=== PATIENT | male | born 1955 | race Caucasian/White ===

== ENCOUNTER 2022-11-21 12:32 | Inpatient (IN) | payer OTHER ==
[~2022-11-21] VITALS: Ht 177.8 cm; Wt 108.9 kg
[2022-11-21] VITALS (24 sets, daily range): BP systolic 75–156; BP diastolic 24–124
[2022-11-21] MEDS ORDERED: SUCCINYLCHOLINE CHLORIDE 20 MG/ML 10ML VIAL IV ONE ×2 (12:39→12:45)
[2022-11-21] MEDS ORDERED: ETOMIDATE (2MG/ML) 20ML VIAL IV ONE ×2 (12:39→12:45)
[2022-11-21] MEDS ORDERED: SODIUM CHLORIDE 0.9% 1,000 ML IVB ONE (12:45)
[2022-11-21] MEDS: fentaNYL Drip 2500mCg/250mlNS 250 ML IV SCH ×2 (12:50→23:00)
[2022-11-21] MEDS: PROPOFOL 100 ML IV SCH (12:50)
[2022-11-21] MEDS ORDERED: MIDAZOLAM DRIP 50 mg/50mL 50 ML IV ONE (12:54)
[2022-11-21 13:40] LABS: Eosinophils # (auto) 0 10 ^3/uL (0-0.8); Monocytes # (auto) 1.5 10 ^3/uL (0-1.3)
[2022-11-21 13:43] LABS: Basophils # (auto) 0 10 ^3/uL (0-0.2); Basophils % (auto) 0.2 % (0.0-2.0); Hemoglobin 18.2 g/dL (13.5-17.5); Lymphocytes # (auto) 1.1 10 ^3/uL (0.4-5.4); Lymphocytes % (auto) 5.3 % (10.0-50.0); Mean Corpuscular Hemoglobin 29.7 pg (28.0-32.0); Mean Corpuscular Hgb Conc. 29.6 g/dL (32.0-36.0); Mean Corpuscular Volume 100.1 fL (80.0-100.0); Monocytes % (auto) 7.1 % (0.0-12.0); Neutrophils # (auto) 18.1 10 ^3/uL (1.6-8.6); Neutrophils % (auto) 87.4 % (37.0-80.0); Nucleated Red Blood Cells % 0.1 %; Red Blood Cells 6.12 10^6/uL (4.5-5.90); White Blood Cell 20.7 10^3/uL (4.4-10.8)
[2022-11-21] MEDS ORDERED: DEXTROSE (50%) 50ML SYRG IV PRN ×2 (13:45→23:30)
[2022-11-21] MEDS ORDERED: INSULIN LANTUS (GLARGINE) 1 /0.01ml (100units/ml) SC ONE (13:45)
[2022-11-21] MEDS ORDERED: InsuLIN R (HUMAN) 100 UNITS in SODIUM CHL 0.9% 99 ML IV SCH ×3 (13:45→23:30)
[2022-11-21 13:47] LABS: Albumin 3.7 g/dL (3.4-5.0); Anion Gap 24 (5-15); Calcium 9.5 mg/dL (8.5-10.1); Carbon Dioxide 15 mmol/L (21-32); Chloride 88 mmol/L (98-107); Sodium 127 mmol/L (136-145)
[2022-11-21 13:49] LABS: INR 1.02 (0.9-1.15); Partial Thromboplastin Time 24.8 sec (24.6-33.4)
[2022-11-21 13:52] LABS: Hematocrit 61.3 % (41.0-53.0)
[2022-11-21 13:56] LABS: Alanine Aminotransferase 93 U/L (16-61); Alkaline Phosphatase 169 U/L (45-117); Aspartate Aminotransferase 38 U/L (15-37); BUN/Creatinine Ratio 17.7; Blood Alcohol < 3.0 mg/dL (0-5); GFR African American 15 mL/min; GFR Non-African American 13 mL/min; Total Protein 7.6 g/dL (6.4-8.2)
[2022-11-21 14:19] LABS: Lactic Acid w/Reflex 5.7 mmol/L (0.4-2.0)
[2022-11-21 14:45] LABS: Blood Urea Nitrogen 88 mg/dL (7-18); Glucose 1749 mg/dL (74-106); Magnesium 4.5 mg/dL (1.6-2.6); Potassium 7.8 mmol/L (3.5-5.1)
[2022-11-21] MEDS ORDERED: InsuLIN REG 1unit/0.01ml Soln (100units/ml) IV ONE (15:00)
[2022-11-21] MEDS ORDERED: SODIUM BICARBONATE 8.4 % INJ 50ML VIAL IV ONE ×2 (15:00)
[2022-11-21] MEDS ORDERED: SODIUM CHLORIDE 0.9% 1,000 ML IV ONE ×2 (15:00→18:15)
[2022-11-21 15:03] LABS: Urine Bacteria NONE SEEN /hpf (None Seen); Urine Blood 3+ /uL (Negative); Urine Specific Gravity 1.024 (1.001-1.035); Urine WBC 37 /hpf (0 - 3)
[2022-11-21] MEDS: ACCU-CHEK COMFORT CURVE STRIP VI SCH ×4 (15:08→19:30)
[2022-11-21] MEDS: MIDAZOLAM DRIP 50 mg/50mL 50 ML IV SCH ×4 (15:09→22:30)
[2022-11-21 15:10] LABS: Alcohol, Urine < 3.0 mg/dL (0-10); Amphetamine Screen, Urine NEGATIVE (NEGATIVE); Barbiturate Scree,Urine NEGATIVE (NEGATIVE); Benzodiazephine Screen, Urine NEGATIVE (NEGATIVE); Cannabinoid Screen, Urine NEGATIVE (NEGATIVE); Cocaine Screen, Urine NEGATIVE (NEGATIVE); Opiate Scree,Urine NEGATIVE (NEGATIVE); Phencyclidine Screen, Urine NEGATIVE (NEGATIVE)
[2022-11-21] MEDS ORDERED: cefTRIAXone 1GM/50ML D5W 50 ML IV ONE (15:15)
[2022-11-21] MEDS: NOREPINEPHRINE BITARTRATE 16 MG in SODIUM CHL 0.9% 234 ML IV SCH ×2 (15:45→21:25)
[2022-11-21] MEDS ORDERED: NITROGLYCERIN 0.4 MG SL TAB SL PRN (17:00)
[2022-11-21] MEDS ORDERED: VANCOMYCIN PER PHARMACY 0 MG IV SCH (17:00)
[2022-11-21] MEDS ORDERED: MORPHINE SULFATE INJ 2 MG/ml SYRG IV PRN (17:00)
[2022-11-21] MEDS ORDERED: CEFEPIME 1GM/ 50ML 50 ML IV ONE (17:00)
[2022-11-21] MEDS ORDERED: PANTOPRAZOLE 40 MG/10 ML VIAL INJ IV ONE (17:00)
[2022-11-21 17:26] LABS: Cholesterol 163 mg/dL (< 200); Triglycerides 453 mg/dL (< 150)
[2022-11-21 17:28] LABS: HDL Cholesterol 30 mg/dL (40-59)
[2022-11-21] MEDS ORDERED: VANCOMYCIN 1GM/250ML 250 ML IV ONE (17:30)
[2022-11-21] MEDS ORDERED: SODIUM CHLORIDE 0.9% 1,000 ML IV SCH (18:15)
[2022-11-21] MEDS ORDERED: ENOXAPARIN SOD 30 MG/0.3 ML SYRINGE SC SCH (18:15)
[2022-11-21] MEDS ORDERED: ACCU-CHEK COMFORT CURVE STRIP VI SCH (21:00)
[2022-11-21 22:00] LABS: Protein, Urine 37.8 mg/dL (0.0-11.9)
[2022-11-21 22:08] LABS: Calcium 8.8 mg/dL (8.5-10.1); Potassium 4.7 mmol/L (3.5-5.1)
[2022-11-21] MEDS: HEPARIN SODIUM (PORCINE) 5000 UNITS/ML 1ML VIAL SC SCH (22:19)
[2022-11-21] MEDS: ACETAMINOPHEN 650 MG RECT SUPP PR PRN (22:27)
[2022-11-21] MEDS ORDERED: ACETAMINOPHEN 650 MG RECT SUPP PR ONE (22:27)
[2022-11-21 22:28] LABS: BUN/Creatinine Ratio 16.2
[2022-11-22] VITALS (99 sets, daily range): BP systolic 69–142; BP diastolic 17–86
[2022-11-22] MEDS: ACCU-CHEK COMFORT CURVE STRIP VI SCH ×17 (00:15→20:00)
[2022-11-22 00:51] LABS: Anion Gap 16 (5-15); BUN/Creatinine Ratio 16.3; Carbon Dioxide 17 mmol/L (21-32); Chloride 111 mmol/L (98-107); GFR African American 13 mL/min; GFR Non-African American 11 mL/min; Potassium 4.9 mmol/L (3.5-5.1); Sodium 144 mmol/L (136-145)
[2022-11-22 01:08] LABS: Blood Urea Nitrogen 90 mg/dL (7-18); Glucose 1021 mg/dL (74-106)
[2022-11-22] MEDS ORDERED: DEXTROSE (50%) 50ML SYRG IV PRN ×2 (01:15→12:45)
[2022-11-22] MEDS ORDERED: InsuLIN R (HUMAN) 100 UNITS in SODIUM CHL 0.9% 99 ML IV SCH (01:15)
[2022-11-22] MEDS ORDERED: SODIUM BICARBONATE 8.4 % INJ 50ML VIAL IV ONE ×2 (01:30→01:32)
[2022-11-22] MEDS: MIDAZOLAM DRIP 50 mg/50mL 50 ML IV SCH ×6 (01:46→21:10)
[2022-11-22] MEDS ORDERED: PHENYLEPHRINE IV 250 ML IV ONE (03:12)
[2022-11-22] MEDS ORDERED: NOREPINEPHRINE 8 MG/250ML KIT 250 ML IV SCH (03:15)
[2022-11-22] MEDS ORDERED: PHENYLEPHRINE IV 250 ML IV SCH (04:00)
[2022-11-22] MEDS ORDERED: VASOPRESSIN 20 UNIT/ML ONE (04:16)
[2022-11-22] MEDS: VASOPRESSIN 20 UNITS in SODIUM CHL 0.9% 99 ML IV SCH ×4 (04:23→20:30)
[2022-11-22 04:32] LABS: Hematocrit 52.6 % (41.0-53.0); Mean Corpuscular Hemoglobin 28.9 pg (28.0-32.0); Mean Corpuscular Hgb Conc. 32.2 g/dL (32.0-36.0); Mean Corpuscular Volume 89.5 fL (80.0-100.0); Red Blood Cells 5.87 10^6/uL (4.5-5.90); Red Cell Distribution Width 13.6 % (11.8-14.3); White Blood Cell 27.9 10^3/uL (4.4-10.8)
[2022-11-22 04:37] LABS: Basophils % (manual) 0 (0.0-2.0); Blast Cells 0; Eosinophils % (manual) 0 (0-7); Metamyelocytes % 0; Myelocytes % 0; Promyelocytes % 0; Reactive Lymphocytes 0
[2022-11-22 04:40] LABS: Calcium 9.4 mg/dL (8.5-10.1); Potassium 4.6 mmol/L (3.5-5.1)
[2022-11-22 04:43] LABS: Bilirubin, Total 0.4 mg/dL (0.2-1.0); Phosphorus 2.6 mg/dL (2.5-4.90); Total Protein 7.2 g/dL (6.4-8.2)
[2022-11-22 04:51] LABS: BUN/Creatinine Ratio 16.1
[2022-11-22] MEDS: HEPARIN SODIUM (PORCINE) 5000 UNITS/ML 1ML VIAL SC SCH ×3 (06:00→22:02)
[2022-11-22 06:44] LABS: BUN/Creatinine Ratio 14.9; Calcium 9.3 mg/dL (8.5-10.1); Potassium 4.5 mmol/L (3.5-5.1)
[2022-11-22 08:35] LABS: Band Neutrophils % (manual) 21; Lymphocytes % (manual) 8 (10.0-50.0); Monocytes % (manual) 7 (0-12)
[2022-11-22] MEDS: PANTOPRAZOLE 40 MG/10 ML VIAL INJ IV SCH (09:26)
[2022-11-22] MEDS ORDERED: CEFEPIME 1GM/ 50ML 50 ML IV SCH (10:00)
[2022-11-22] MEDS ORDERED: ENOXAPARIN SOD 30 MG/0.3 ML SYRINGE SC SCH (10:00)
[2022-11-22] MEDS ORDERED: INSULIN LANTUS (GLARGINE) 1 /0.01ml (100units/ml) SC SCH ×3 (10:00)
[2022-11-22] MEDS: PHENYLEPHRINE INJ 80 MG in SODIUM CHL 0.9% 242 ML IV SCH (10:31)
[2022-11-22] MEDS ORDERED: DOPamine 1600MCG/ML D5W 250 ML IV SCH ×3 (12:15→14:30)
[2022-11-22] MEDS ORDERED: SOD CHL 0.45% 1,000 ML IV SCH (12:15)
[2022-11-22 12:21] LABS: BUN/Creatinine Ratio 15.4; Calcium 8.2 mg/dL (8.5-10.1); Potassium 4.2 mmol/L (3.5-5.1)
[2022-11-22] MEDS: PROPOFOL 100 ML IV SCH (12:50)
[2022-11-22] MEDS: BUMETANIDE INJECTION 12.5 MG in GIVE UN-DILUTED 0 ML IV SCH (15:07)
[2022-11-22] MEDS: LINEZOLID 600MG/300ML 300 ML IV SCH (15:09)
[2022-11-22] MEDS: InsuLIN REG 1unit/0.01ml Soln (100units/ml) SC SCH ×2 (15:27→20:00)
[2022-11-22] MEDS: NOREPINEPHRINE BITARTRATE 32 MG in SODIUM CHL 0.9% 218 ML IV SCH (15:50)
[2022-11-22] MEDS: FREE WATER GT SCH ×3 (15:50→22:27)
[2022-11-22 16:50] LABS: BUN/Creatinine Ratio 16.4; Calcium 8.2 mg/dL (8.5-10.1); Potassium 4.9 mmol/L (3.5-5.1)
[2022-11-22 18:37] LABS: Calcium 8.3 mg/dL (8.5-10.1); Potassium 5.1 mmol/L (3.5-5.1)
[2022-11-22] MEDS: CEFEPIME 1GM/ 50ML 50 ML IV SCH (22:27)
[2022-11-23] VITALS (105 sets, daily range): BP systolic 88–136; BP diastolic 57–85
[2022-11-23] MEDS: BUMETANIDE INJECTION 12.5 MG in GIVE UN-DILUTED 0 ML IV SCH (01:00)
[2022-11-23] MEDS: MIDAZOLAM DRIP 50 mg/50mL 50 ML IV SCH ×6 (01:00→22:14)
[2022-11-23] MEDS ORDERED: INSULIN LANTUS (GLARGINE) 1 /0.01ml (100units/ml) SC ONE (01:15)
[2022-11-23] MEDS: FREE WATER GT SCH ×6 (01:59→21:53)
[2022-11-23] MEDS: LINEZOLID 600MG/300ML 300 ML IV SCH ×2 (02:00→14:21)
[2022-11-23] MEDS: ACETAMINOPHEN 650 MG RECT SUPP PR PRN ×3 (02:00→18:03)
[2022-11-23] MEDS: fentaNYL Drip 2500mCg/250mlNS 250 ML IV SCH ×2 (02:00→18:00)
[2022-11-23 03:58] LABS: Basophils # (auto) 0.1 10 ^3/uL (0-0.2); Basophils % (auto) 0.5 % (0.0-2.0); Eosinophils # (auto) 0.1 10 ^3/uL (0-0.8); Eosinophils % (auto) 0.4 % (0.0-7.0); Hematocrit 49.8 % (41.0-53.0); Hemoglobin 16.8 g/dL (13.5-17.5); Lymphocytes # (auto) 3.1 10 ^3/uL (0.4-5.4); Lymphocytes % (auto) 14.2 % (10.0-50.0); Mean Corpuscular Hemoglobin 29.6 pg (28.0-32.0); Mean Corpuscular Hgb Conc. 33.8 g/dL (32.0-36.0); Mean Corpuscular Volume 87.4 fL (80.0-100.0); Monocytes # (auto) 1.7 10 ^3/uL (0-1.3); Monocytes % (auto) 7.7 % (0.0-12.0); Neutrophils # (auto) 17.1 10 ^3/uL (1.6-8.6); Neutrophils % (auto) 77.2 % (37.0-80.0); Red Blood Cells 5.69 10^6/uL (4.5-5.90); Red Cell Distribution Width 13.3 % (11.8-14.3); White Blood Cell 22.1 10^3/uL (4.4-10.8)
[2022-11-23] MEDS: ACCU-CHEK COMFORT CURVE STRIP VI SCH ×12 (04:00→21:53)
[2022-11-23 04:14] LABS: Albumin 2.6 g/dL (3.4-5.0); Calcium 8.1 mg/dL (8.5-10.1); Magnesium 2.9 mg/dL (1.6-2.6); Potassium 5.3 mmol/L (3.5-5.1)
[2022-11-23 04:18] LABS: BUN/Creatinine Ratio 16.2; Bilirubin, Total 0.7 mg/dL (0.2-1.0); Phosphorus 5.1 mg/dL (2.5-4.90)
[2022-11-23] MEDS: NOREPINEPHRINE BITARTRATE 32 MG in SODIUM CHL 0.9% 218 ML IV SCH ×2 (06:00→23:30)
[2022-11-23] MEDS: InsuLIN REG 1unit/0.01ml Soln (100units/ml) SC SCH ×10 (06:00→22:35)
[2022-11-23] MEDS: PHENYLEPHRINE INJ 80 MG in SODIUM CHL 0.9% 242 ML IV SCH (06:00)
[2022-11-23] MEDS: HEPARIN SODIUM (PORCINE) 5000 UNITS/ML 1ML VIAL SC SCH ×3 (06:00→21:52)
[2022-11-23] MEDS: PANTOPRAZOLE 40 MG/10 ML VIAL INJ IV SCH (09:40)
[2022-11-23] MEDS: CEFEPIME 1GM/ 50ML 50 ML IV SCH ×2 (09:40→21:53)
[2022-11-23] MEDS ORDERED: INSULIN LANTUS (GLARGINE) 1 /0.01ml (100units/ml) SC SCH (10:00)
[2022-11-23] MEDS: DOPamine 1600MCG/ML D5W 250 ML IV SCH ×2 (10:15→20:38)
[2022-11-23] MEDS: INSULIN LANTUS (GLARGINE) 1 /0.01ml (100units/ml) SC SCH ×2 (10:37→22:01)
[2022-11-23] MEDS: PROPOFOL 100 ML IV SCH (12:50)
[2022-11-23] MEDS: VASOPRESSIN 20 UNITS in SODIUM CHL 0.9% 99 ML IV SCH (21:10)
[2022-11-23] MEDS ORDERED: NOREPINEPHRINE 8 MG/250 ML IV ONE (23:14)
[2022-11-23] MEDS ORDERED: NOREPINEPHRINE 8 MG/250ML KIT 250 ML IV ONE (23:22)
[2022-11-24] VITALS (101 sets, daily range): BP systolic 80–145; BP diastolic 41–91
[2022-11-24] MEDS ORDERED: InsuLIN REG 1unit/0.01ml Soln (100units/ml) SC SCH
[2022-11-24] MEDS: InsuLIN REG 1unit/0.01ml Soln (100units/ml) SC SCH ×12 (02:00→22:10)
[2022-11-24] MEDS: LINEZOLID 600MG/300ML 300 ML IV SCH ×2 (02:20→15:38)
[2022-11-24] MEDS: FREE WATER GT SCH ×6 (02:20→21:30)
[2022-11-24] MEDS: ACCU-CHEK COMFORT CURVE STRIP VI SCH ×12 (02:20→22:11)
[2022-11-24] MEDS: BUMETANIDE INJECTION 12.5 MG in GIVE UN-DILUTED 0 ML IV SCH (02:50)
[2022-11-24] MEDS: ACETAMINOPHEN 650 MG RECT SUPP PR PRN (02:50)
[2022-11-24] MEDS: MIDAZOLAM DRIP 50 mg/50mL 50 ML IV SCH (03:01)
[2022-11-24] MEDS: D5W 5% 1,000 ML IV SCH ×2 (04:00→15:06)
[2022-11-24 04:29] LABS: Basophils # (auto) 0.2 10 ^3/uL (0-0.2); Basophils % (auto) 0.7 % (0.0-2.0); Eosinophils # (auto) 0.2 10 ^3/uL (0-0.8); Hematocrit 48.9 % (41.0-53.0); Hemoglobin 17.3 g/dL (13.5-17.5); Lymphocytes # (auto) 2.8 10 ^3/uL (0.4-5.4); Lymphocytes % (auto) 12.4 % (10.0-50.0); Mean Corpuscular Hemoglobin 30.1 pg (28.0-32.0); Mean Corpuscular Hgb Conc. 35.5 g/dL (32.0-36.0); Mean Corpuscular Volume 84.9 fL (80.0-100.0); Monocytes # (auto) 1.6 10 ^3/uL (0-1.3); Neutrophils # (auto) 17.7 10 ^3/uL (1.6-8.6); Neutrophils % (auto) 78.9 % (37.0-80.0); Nucleated Red Blood Cells % 0.1 %; Red Blood Cells 5.76 10^6/uL (4.5-5.90); Red Cell Distribution Width 13.1 % (11.8-14.3); White Blood Cell 22.4 10^3/uL (4.4-10.8)
[2022-11-24 04:49] LABS: BUN/Creatinine Ratio 18.8; Calcium 8.6 mg/dL (8.5-10.1); Potassium 3.7 mmol/L (3.5-5.1)
[2022-11-24] MEDS: HEPARIN SODIUM (PORCINE) 5000 UNITS/ML 1ML VIAL SC SCH ×3 (06:39→21:31)
[2022-11-24] MEDS: VASOPRESSIN 20 UNITS in SODIUM CHL 0.9% 99 ML IV SCH ×2 (07:49→11:06)
[2022-11-24] MEDS: PHENYLEPHRINE INJ 80 MG in SODIUM CHL 0.9% 242 ML IV SCH (08:45)
[2022-11-24] MEDS: PANTOPRAZOLE 40 MG/10 ML VIAL INJ IV SCH (10:07)
[2022-11-24] MEDS: CEFEPIME 1GM/ 50ML 50 ML IV SCH ×2 (10:12→21:30)
[2022-11-24] MEDS: INSULIN LANTUS (GLARGINE) 1 /0.01ml (100units/ml) SC SCH ×2 (10:32→21:32)
[2022-11-24] MEDS: PROPOFOL 100 ML IV SCH (12:50)
[2022-11-24] MEDS: NOREPINEPHRINE BITARTRATE 32 MG in SODIUM CHL 0.9% 218 ML IV SCH (16:44)
[2022-11-24] MEDS: DOPamine 1600MCG/ML D5W 250 ML IV SCH (23:00)
[2022-11-25] VITALS (99 sets, daily range): BP systolic 87–146; BP diastolic 59–97
[2022-11-25] MEDS: ACCU-CHEK COMFORT CURVE STRIP VI SCH ×9 (00:24→23:28)
[2022-11-25] MEDS: InsuLIN REG 1unit/0.01ml Soln (100units/ml) SC SCH ×9 (00:26→23:19)
[2022-11-25] MEDS ORDERED: BUMETANIDE INJECTION 50 ML ONE (00:42)
[2022-11-25] MEDS: FREE WATER GT SCH ×4 (01:40→18:00)
[2022-11-25] MEDS: BUMETANIDE INJECTION 12.5 MG in GIVE UN-DILUTED 0 ML IV SCH (02:05)
[2022-11-25] MEDS: LINEZOLID 600MG/300ML 300 ML IV SCH ×2 (02:56→16:03)
[2022-11-25 03:36] LABS: Basophils # (auto) 0.1 10 ^3/uL (0-0.2); Basophils % (auto) 0.6 % (0.0-2.0); Eosinophils # (auto) 0.1 10 ^3/uL (0-0.8); Eosinophils % (auto) 0.6 % (0.0-7.0); Hematocrit 48.5 % (41.0-53.0); Hemoglobin 16.5 g/dL (13.5-17.5); Lymphocytes # (auto) 1.9 10 ^3/uL (0.4-5.4); Lymphocytes % (auto) 10.6 % (10.0-50.0); Mean Corpuscular Hemoglobin 29.5 pg (28.0-32.0); Mean Corpuscular Volume 86.6 fL (80.0-100.0); Monocytes # (auto) 1.2 10 ^3/uL (0-1.3); Monocytes % (auto) 6.9 % (0.0-12.0); Neutrophils # (auto) 14.1 10 ^3/uL (1.6-8.6); Neutrophils % (auto) 81.3 % (37.0-80.0); Nucleated Red Blood Cells % 0.2 %; Red Cell Distribution Width 13.1 % (11.8-14.3); White Blood Cell 17.4 10^3/uL (4.4-10.8)
[2022-11-25 05:00] LABS: Albumin 2.4 g/dL (3.4-5.0); Calcium 7.9 mg/dL (8.5-10.1); Potassium 3.5 mmol/L (3.5-5.1)
[2022-11-25 05:04] LABS: BUN/Creatinine Ratio 23.8; Bilirubin, Total 0.8 mg/dL (0.2-1.0); Total Protein 6.5 g/dL (6.4-8.2)
[2022-11-25] MEDS: HEPARIN SODIUM (PORCINE) 5000 UNITS/ML 1ML VIAL SC SCH ×3 (06:00→23:11)
[2022-11-25] MEDS: PHENYLEPHRINE INJ 80 MG in SODIUM CHL 0.9% 242 ML IV SCH (08:43)
[2022-11-25] MEDS: VASOPRESSIN 20 UNITS in SODIUM CHL 0.9% 99 ML IV SCH (10:04)
[2022-11-25] MEDS: PANTOPRAZOLE 40 MG/10 ML VIAL INJ IV SCH (10:04)
[2022-11-25] MEDS: CEFEPIME 1GM/ 50ML 50 ML IV SCH ×2 (10:05→23:30)
[2022-11-25] MEDS: INSULIN LANTUS (GLARGINE) 1 /0.01ml (100units/ml) SC SCH ×2 (10:21→23:27)
[2022-11-25] MEDS: D5W 5% 1,000 ML IV SCH (10:23)
[2022-11-25] MEDS: PROPOFOL 100 ML IV SCH (12:34)
[2022-11-25] MEDS: fentaNYL Drip 2500mCg/250mlNS 250 ML IV SCH (12:34)
[2022-11-25] MEDS: MIDAZOLAM DRIP 50 mg/50mL 50 ML IV SCH (12:35)
[2022-11-25] MEDS: BUMETANIDE 1mg/4ml VIAL (0.25mg/ml) IV SCH (18:00)
[2022-11-26] VITALS (102 sets, daily range): BP systolic 89–144; BP diastolic 52–94
[2022-11-26] MEDS: LINEZOLID 600MG/300ML 300 ML IV SCH ×2 (02:00→14:00)
[2022-11-26] MEDS: ACCU-CHEK COMFORT CURVE STRIP VI SCH ×6 (02:00→22:59)
[2022-11-26] MEDS: InsuLIN REG 1unit/0.01ml Soln (100units/ml) SC SCH ×6 (02:00→22:55)
[2022-11-26] MEDS: HEPARIN SODIUM (PORCINE) 5000 UNITS/ML 1ML VIAL SC SCH ×3 (06:00→22:57)
[2022-11-26] MEDS: FREE WATER GT SCH ×4 (06:00→18:21)
[2022-11-26] MEDS: BUMETANIDE 1mg/4ml VIAL (0.25mg/ml) IV SCH (06:00)
[2022-11-26 07:03] LABS: Hematocrit 47.2 % (41.0-53.0); Hemoglobin 16.5 g/dL (13.5-17.5); Mean Corpuscular Hemoglobin 29.7 pg (28.0-32.0); Mean Corpuscular Hgb Conc. 34.9 g/dL (32.0-36.0); Mean Corpuscular Volume 85.2 fL (80.0-100.0); Red Blood Cells 5.54 10^6/uL (4.5-5.90); Red Cell Distribution Width 12.7 % (11.8-14.3); White Blood Cell 15.7 10^3/uL (4.4-10.8)
[2022-11-26 07:08] LABS: Basophils % (manual) 0 (0.0-2.0); Blast Cells 0; Metamyelocytes % 0; Myelocytes % 0; Promyelocytes % 0; Reactive Lymphocytes 0
[2022-11-26 07:25] LABS: Albumin 2.4 g/dL (3.4-5.0); Calcium 8.6 mg/dL (8.5-10.1); Potassium 3.7 mmol/L (3.5-5.1)
[2022-11-26 07:28] LABS: BUN/Creatinine Ratio 30.6; Bilirubin, Total 0.8 mg/dL (0.2-1.0); Total Protein 6.5 g/dL (6.4-8.2)
[2022-11-26 08:03] LABS: Band Neutrophils % (manual) 7; Eosinophils % (manual) 1 (0-7); Lymphocytes % (manual) 14 (10.0-50.0); Monocytes % (manual) 10 (0-12)
[2022-11-26] MEDS: VASOPRESSIN 20 UNITS in SODIUM CHL 0.9% 99 ML IV SCH ×2 (08:18→19:25)
[2022-11-26] MEDS: PHENYLEPHRINE INJ 80 MG in SODIUM CHL 0.9% 242 ML IV SCH (08:45)
[2022-11-26] MEDS: CEFEPIME 1GM/ 50ML 50 ML IV SCH ×2 (11:38→22:52)
[2022-11-26] MEDS: PANTOPRAZOLE 40 MG/10 ML VIAL INJ IV SCH (11:38)
[2022-11-26] MEDS: INSULIN LANTUS (GLARGINE) 1 /0.01ml (100units/ml) SC SCH ×2 (11:58→22:57)
[2022-11-26] MEDS ORDERED: SODIUM CHLORIDE 0.9% 1,000 ML IV ONE (12:45)
[2022-11-26] MEDS: MIDAZOLAM DRIP 50 mg/50mL 50 ML IV SCH (12:50)
[2022-11-26] MEDS: fentaNYL Drip 2500mCg/250mlNS 250 ML IV SCH (12:50)
[2022-11-26] MEDS: PROPOFOL 100 ML IV SCH ×2 (12:50→20:30)
[2022-11-26] MEDS ORDERED: MICAFUNGIN SODIUM 100 MG in SODIUM CHL 0.9% 100 ML IV ONE (13:15)
[2022-11-27] VITALS (107 sets, daily range): BP systolic 87–123; BP diastolic 56–81
[2022-11-27 01:02] LABS: Calcium 8.8 mg/dL (8.5-10.1); Magnesium 3.1 mg/dL (1.6-2.6); Potassium 3.5 mmol/L (3.5-5.1)
[2022-11-27] MEDS: PROPOFOL 100 ML IV SCH ×6 (02:44→19:33)
[2022-11-27] MEDS: FREE WATER GT SCH ×5 (02:45→23:47)
[2022-11-27] MEDS: LINEZOLID 600MG/300ML 300 ML IV SCH (02:45)
[2022-11-27] MEDS: InsuLIN REG 1unit/0.01ml Soln (100units/ml) SC SCH ×6 (02:46→21:50)
[2022-11-27] MEDS: ACCU-CHEK COMFORT CURVE STRIP VI SCH ×6 (02:46→21:52)
[2022-11-27] MEDS: HEPARIN SODIUM (PORCINE) 5000 UNITS/ML 1ML VIAL SC SCH ×3 (06:53→21:49)
[2022-11-27 07:23] LABS: Basophils # (auto) 0 10 ^3/uL (0-0.2); Basophils % (auto) 0.2 % (0.0-2.0); Eosinophils # (auto) 0.1 10 ^3/uL (0-0.8); Eosinophils % (auto) 0.3 % (0.0-7.0); Hematocrit 45.1 % (41.0-53.0); Hemoglobin 15.6 g/dL (13.5-17.5); Lymphocytes # (auto) 2.4 10 ^3/uL (0.4-5.4); Mean Corpuscular Hemoglobin 29.8 pg (28.0-32.0); Mean Corpuscular Hgb Conc. 34.5 g/dL (32.0-36.0); Mean Corpuscular Volume 86.2 fL (80.0-100.0); Monocytes # (auto) 1.7 10 ^3/uL (0-1.3); Monocytes % (auto) 10.3 % (0.0-12.0); Neutrophils # (auto) 12.1 10 ^3/uL (1.6-8.6); Neutrophils % (auto) 74.2 % (37.0-80.0); Nucleated Red Blood Cells % 0.1 %; Red Blood Cells 5.23 10^6/uL (4.5-5.90); White Blood Cell 16.3 10^3/uL (4.4-10.8)
[2022-11-27 07:44] LABS: Albumin 2.4 g/dL (3.4-5.0); Calcium 8.4 mg/dL (8.5-10.1); Potassium 3.4 mmol/L (3.5-5.1)
[2022-11-27 07:47] LABS: BUN/Creatinine Ratio 36.1; Bilirubin, Total 0.6 mg/dL (0.2-1.0); Total Protein 6.2 g/dL (6.4-8.2)
[2022-11-27] MEDS: INSULIN LANTUS (GLARGINE) 1 /0.01ml (100units/ml) SC SCH ×2 (10:00→21:51)
[2022-11-27] MEDS: SODIUM CHLORIDE 0.9% 1,000 ML IV SCH (10:00)
[2022-11-27] MEDS: PANTOPRAZOLE 40 MG/10 ML VIAL INJ IV SCH (10:20)
[2022-11-27] MEDS: CEFEPIME 1GM/ 50ML 50 ML IV SCH (10:21)
[2022-11-27] MEDS: PHENYLEPHRINE INJ 80 MG in SODIUM CHL 0.9% 242 ML IV SCH (10:22)
[2022-11-27] MEDS: NOREPINEPHRINE BITARTRATE 32 MG in SODIUM CHL 0.9% 218 ML IV SCH ×2 (10:22→13:45)
[2022-11-27] MEDS: MICAFUNGIN SODIUM 100 MG in SODIUM CHL 0.9% 100 ML IV SCH (10:22)
[2022-11-27] MEDS: VASOPRESSIN 20 UNITS in SODIUM CHL 0.9% 99 ML IV SCH ×2 (10:24→17:39)
[2022-11-27] MEDS ORDERED: Nepro With Carb Steady 1 Liter Bottle GT SCH (11:45)
[2022-11-27] MEDS: fentaNYL Drip 2500mCg/250mlNS 250 ML IV SCH (12:50)
[2022-11-27] MEDS: MIDAZOLAM DRIP 50 mg/50mL 50 ML IV SCH (12:50)
[2022-11-27] MEDS ORDERED: EPINEPHrine HCL 1 MG/10 ML SYRG IV ONE (13:02)
[2022-11-27] MEDS ORDERED: ceFAZolin 2 GM in D5W 5% 100 ML IV SCH (22:00)
[2022-11-28] VITALS (87 sets, daily range): BP systolic 89–142; BP diastolic 59–87
[2022-11-28] MEDS: SODIUM CHLORIDE 0.9% 1,000 ML IV SCH (01:00)
[2022-11-28] MEDS: InsuLIN REG 1unit/0.01ml Soln (100units/ml) SC SCH ×5 (02:13→23:46)
[2022-11-28] MEDS: ACCU-CHEK COMFORT CURVE STRIP VI SCH ×5 (02:13→23:44)
[2022-11-28] MEDS: PROPOFOL 100 ML IV SCH ×3 (02:15→19:24)
[2022-11-28 03:56] LABS: Basophils # (auto) 0.1 10 ^3/uL (0-0.2); Basophils % (auto) 0.6 % (0.0-2.0); Eosinophils # (auto) 0.3 10 ^3/uL (0-0.8); Eosinophils % (auto) 1.9 % (0.0-7.0); Hematocrit 44.5 % (41.0-53.0); Lymphocytes % (auto) 13.8 % (10.0-50.0); Mean Corpuscular Hemoglobin 29.4 pg (28.0-32.0); Mean Corpuscular Hgb Conc. 33.8 g/dL (32.0-36.0); Monocytes # (auto) 1.2 10 ^3/uL (0-1.3); Monocytes % (auto) 8.2 % (0.0-12.0); Neutrophils % (auto) 75.5 % (37.0-80.0); Red Blood Cells 5.12 10^6/uL (4.5-5.90); Red Cell Distribution Width 12.8 % (11.8-14.3); White Blood Cell 14.6 10^3/uL (4.4-10.8)
[2022-11-28 04:31] LABS: Albumin 2.3 g/dL (3.4-5.0); BUN/Creatinine Ratio 50.6; Bilirubin, Total 0.4 mg/dL (0.2-1.0); Total Protein 5.9 g/dL (6.4-8.2)
[2022-11-28 04:45] LABS: Potassium 2.8 mmol/L (3.5-5.1)
[2022-11-28] MEDS: VASOPRESSIN 20 UNITS in SODIUM CHL 0.9% 99 ML IV SCH (04:46)
[2022-11-28] MEDS: SOD CHL 0.45% 1,000 ML IV SCH ×2 (05:15→15:15)
[2022-11-28] MEDS: POTASSIUM CHL 20MEQ/100ML 100 ML IV SCH ×4 (05:15→07:15)
[2022-11-28] MEDS: FREE WATER GT SCH ×4 (05:39→23:46)
[2022-11-28] MEDS: HEPARIN SODIUM (PORCINE) 5000 UNITS/ML 1ML VIAL SC SCH ×3 (05:39→21:56)
[2022-11-28] MEDS: PHENYLEPHRINE INJ 80 MG in SODIUM CHL 0.9% 242 ML IV SCH (08:45)
[2022-11-28] MEDS ORDERED: ceFAZolin 2 GM in D5W 5% 100 ML IV SCH (10:00)
[2022-11-28] MEDS: MICAFUNGIN SODIUM 100 MG in SODIUM CHL 0.9% 100 ML IV SCH (10:08)
[2022-11-28] MEDS: PANTOPRAZOLE 40 MG/10 ML VIAL INJ IV SCH (10:08)
[2022-11-28] MEDS: INSULIN LANTUS (GLARGINE) 1 /0.01ml (100units/ml) SC SCH ×2 (10:25→21:58)
[2022-11-28] MEDS: fentaNYL Drip 2500mCg/250mlNS 250 ML IV SCH (12:50)
[2022-11-28] MEDS: MIDAZOLAM DRIP 50 mg/50mL 50 ML IV SCH (12:50)
[2022-11-28] MEDS: NOREPINEPHRINE BITARTRATE 32 MG in SODIUM CHL 0.9% 218 ML IV SCH (13:45)
[2022-11-28] MEDS: ceFAZolin 2 GM in D5W 5% 100 ML IV SCH (21:57)
[2022-11-29] VITALS (82 sets, daily range): BP systolic 92–135; BP diastolic 57–82
[2022-11-29] MEDS: SOD CHL 0.45% 1,000 ML IV SCH (01:15)
[2022-11-29] MEDS: PROPOFOL 100 ML IV SCH ×6 (01:38→23:27)
[2022-11-29 04:35] LABS: BUN/Creatinine Ratio 63.6; Calcium 8.5 mg/dL (8.5-10.1); Potassium 3.2 mmol/L (3.5-5.1)
[2022-11-29 04:37] LABS: Hematocrit 45.1 % (41.0-53.0); Hemoglobin 15.1 g/dL (13.5-17.5); Mean Corpuscular Hgb Conc. 33.4 g/dL (32.0-36.0); Mean Corpuscular Volume 86.9 fL (80.0-100.0); Red Blood Cells 5.19 10^6/uL (4.5-5.90); Red Cell Distribution Width 13.2 % (11.8-14.3); White Blood Cell 14.5 10^3/uL (4.4-10.8)
[2022-11-29 04:38] LABS: Basophils % (manual) 0 (0.0-2.0); Blast Cells 0; Myelocytes % 0; Promyelocytes % 0; Reactive Lymphocytes 0
[2022-11-29] MEDS: ACCU-CHEK COMFORT CURVE STRIP VI SCH ×4 (05:47→23:35)
[2022-11-29] MEDS: FREE WATER GT SCH ×4 (05:47→21:57)
[2022-11-29] MEDS: InsuLIN REG 1unit/0.01ml Soln (100units/ml) SC SCH ×4 (05:49→23:35)
[2022-11-29] MEDS: HEPARIN SODIUM (PORCINE) 5000 UNITS/ML 1ML VIAL SC SCH ×3 (05:49→22:00)
[2022-11-29 08:43] LABS: Band Neutrophils % (manual) 13; Eosinophils % (manual) 1 (0-7); Lymphocytes % (manual) 12 (10.0-50.0); Metamyelocytes % 2; Monocytes % (manual) 8 (0-12)
[2022-11-29] MEDS: INSULIN LANTUS (GLARGINE) 1 /0.01ml (100units/ml) SC SCH ×2 (10:00→22:01)
[2022-11-29] MEDS: D5W 5% 1,000 ML IV SCH ×2 (10:30→21:19)
[2022-11-29] MEDS: PANTOPRAZOLE 40 MG/10 ML VIAL INJ IV SCH (10:35)
[2022-11-29] MEDS: ceFAZolin 2 GM in D5W 5% 100 ML IV SCH ×2 (10:35→21:58)
[2022-11-29] MEDS: MIDAZOLAM DRIP 50 mg/50mL 50 ML IV SCH (12:50)
[2022-11-29] MEDS: fentaNYL Drip 2500mCg/250mlNS 250 ML IV SCH (12:50)
[2022-11-29] MEDS: NOREPINEPHRINE BITARTRATE 32 MG in SODIUM CHL 0.9% 218 ML IV SCH (13:45)
[2022-11-30] VITALS (102 sets, daily range): BP systolic 105–151; BP diastolic 56–110
[2022-11-30] MEDS: FREE WATER GT SCH ×6 (02:59→21:33)
[2022-11-30 04:14] LABS: Hematocrit 39.4 % (41.0-53.0); Hemoglobin 13.1 g/dL (13.5-17.5); Mean Corpuscular Hemoglobin 29.4 pg (28.0-32.0); Mean Corpuscular Hgb Conc. 33.2 g/dL (32.0-36.0); Mean Corpuscular Volume 88.4 fL (80.0-100.0); Red Blood Cells 4.46 10^6/uL (4.5-5.90); Red Cell Distribution Width 13.4 % (11.8-14.3)
[2022-11-30] MEDS: PROPOFOL 100 ML IV SCH ×3 (04:16→19:22)
[2022-11-30 04:19] LABS: Anion Gap 8 (5-15); Carbon Dioxide 25 mmol/L (21-32); Chloride 108 mmol/L (98-107); Sodium 141 mmol/L (136-145)
[2022-11-30 04:22] LABS: GFR African American 33 mL/min; GFR Non-African American 27 mL/min
[2022-11-30 04:24] LABS: Basophils % (manual) 0 (0.0-2.0); Blast Cells 0; Myelocytes % 0; Promyelocytes % 0; Reactive Lymphocytes 0
[2022-11-30 04:28] LABS: Glucose 461 mg/dL (74-106); Potassium 2.7 mmol/L (3.5-5.1)
[2022-11-30 04:29] LABS: Blood Urea Nitrogen 130 mg/dL (7-18)
[2022-11-30 04:56] LABS: Band Neutrophils % (manual) 4; Eosinophils % (manual) 1 (0-7); Lymphocytes % (manual) 21 (10.0-50.0); Metamyelocytes % 3; Monocytes % (manual) 11 (0-12)
[2022-11-30 05:28] LABS: Calcium 8.8 mg/dL (8.5-10.1); Potassium 3.1 mmol/L (3.5-5.1)
[2022-11-30] MEDS: HEPARIN SODIUM (PORCINE) 5000 UNITS/ML 1ML VIAL SC SCH ×3 (05:30→21:31)
[2022-11-30] MEDS: ACCU-CHEK COMFORT CURVE STRIP VI SCH ×4 (05:31→23:44)
[2022-11-30] MEDS: InsuLIN REG 1unit/0.01ml Soln (100units/ml) SC SCH ×4 (05:31→23:44)
[2022-11-30] MEDS ORDERED: POTASSIUM CHLORIDE 40 MEQ, LIDOCAINE 1% (LOCAL ANESTH.) 4 ML in SODIUM CHL 0.9% 250 ML IV ONE (08:00)
[2022-11-30] MEDS: D5W 5% 1,000 ML IV SCH ×2 (09:16→16:30)
[2022-11-30] MEDS: PANTOPRAZOLE 40 MG/10 ML VIAL INJ IV SCH (09:46)
[2022-11-30] MEDS: ceFAZolin 2 GM in D5W 5% 100 ML IV SCH ×2 (09:48→21:33)
[2022-11-30] MEDS: INSULIN LANTUS (GLARGINE) 1 /0.01ml (100units/ml) SC SCH ×2 (09:49→21:33)
[2022-11-30] MEDS: fentaNYL Drip 2500mCg/250mlNS 250 ML IV SCH (11:26)
[2022-11-30] MEDS: MIDAZOLAM DRIP 50 mg/50mL 50 ML IV SCH (11:26)
[2022-11-30] MEDS: NOREPINEPHRINE BITARTRATE 32 MG in SODIUM CHL 0.9% 218 ML IV SCH (11:26)
[2022-11-30] MEDS ORDERED: FREE WATER GT SCH (13:00)
[2022-11-30 18:33] LABS: BUN/Creatinine Ratio 53.7; Calcium 8.7 mg/dL (8.5-10.1); Potassium 3.1 mmol/L (3.5-5.1)
[2022-11-30] MEDS: POTASSIUM CHL 20MEQ/100ML 100 ML IV SCH (22:29)
[2022-12-01] VITALS (84 sets, daily range): BP systolic 83–158; BP diastolic 34–102
[2022-12-01] MEDS: POTASSIUM CHL 20MEQ/100ML 100 ML IV SCH ×2 (00:37→02:30)
[2022-12-01] MEDS: FREE WATER GT SCH ×6 (02:29→22:15)
[2022-12-01] MEDS: D5W 5% 1,000 ML IV SCH ×3 (02:35→22:33)
[2022-12-01 04:38] LABS: Chloride 119 mmol/L (98-107); Potassium 5.1 mmol/L (3.5-5.1); Sodium 149 mmol/L (136-145)
[2022-12-01 04:44] LABS: Anion Gap 8 (5-15); BUN/Creatinine Ratio 45.9; Calcium 8.4 mg/dL (8.5-10.1); Carbon Dioxide 22 mmol/L (21-32); GFR African American 37 mL/min; GFR Non-African American 31 mL/min; Glucose 162 mg/dL (74-106)
[2022-12-01 04:46] LABS: Blood Urea Nitrogen 105 mg/dL (7-18)
[2022-12-01 04:47] LABS: Alanine Aminotransferase 27 U/L (16-61); Alkaline Phosphatase 134 U/L (45-117); Aspartate Aminotransferase 93 U/L (15-37); Bilirubin, Total 0.8 mg/dL (0.2-1.0); Total Protein 6.1 g/dL (6.4-8.2)
[2022-12-01] MEDS: HEPARIN SODIUM (PORCINE) 5000 UNITS/ML 1ML VIAL SC SCH ×3 (06:01→22:16)
[2022-12-01] MEDS: ACCU-CHEK COMFORT CURVE STRIP VI SCH ×3 (06:03→17:40)
[2022-12-01] MEDS: InsuLIN REG 1unit/0.01ml Soln (100units/ml) SC SCH ×3 (06:03→17:41)
[2022-12-01] MEDS: PANTOPRAZOLE 40 MG/10 ML VIAL INJ IV SCH (09:42)
[2022-12-01] MEDS: ceFAZolin 2 GM in D5W 5% 100 ML IV SCH ×2 (09:43→22:16)
[2022-12-01] MEDS: INSULIN LANTUS (GLARGINE) 1 /0.01ml (100units/ml) SC SCH ×2 (09:46→22:32)
[2022-12-01] MEDS: fentaNYL Drip 2500mCg/250mlNS 250 ML IV SCH (12:50)
[2022-12-01] MEDS: MIDAZOLAM DRIP 50 mg/50mL 50 ML IV SCH (12:50)
[2022-12-01] MEDS: NOREPINEPHRINE BITARTRATE 32 MG in SODIUM CHL 0.9% 218 ML IV SCH (13:45)
[2022-12-01 18:47] LABS: BUN/Creatinine Ratio 43.6; Calcium 8.9 mg/dL (8.5-10.1); Potassium 3.3 mmol/L (3.5-5.1)
[2022-12-02] VITALS (73 sets, daily range): BP systolic 86–143; BP diastolic 41–91
[2022-12-02] MEDS: ACCU-CHEK COMFORT CURVE STRIP VI SCH ×4 (00:20→17:43)
[2022-12-02] MEDS: InsuLIN REG 1unit/0.01ml Soln (100units/ml) SC SCH ×4 (00:21→17:43)
[2022-12-02] MEDS: FREE WATER GT SCH ×6 (02:44→21:50)
[2022-12-02 04:43] LABS: BUN/Creatinine Ratio 45.1; Calcium 8.3 mg/dL (8.5-10.1); Potassium 3.3 mmol/L (3.5-5.1)
[2022-12-02] MEDS: HEPARIN SODIUM (PORCINE) 5000 UNITS/ML 1ML VIAL SC SCH ×3 (05:51→22:02)
[2022-12-02 08:43] LABS: Hematocrit 38.5 % (41.0-53.0); Hemoglobin 12.8 g/dL (13.5-17.5); Mean Corpuscular Hemoglobin 28.9 pg (28.0-32.0); Mean Corpuscular Hgb Conc. 33.2 g/dL (32.0-36.0); Mean Corpuscular Volume 87.1 fL (80.0-100.0); Red Blood Cells 4.42 10^6/uL (4.5-5.90); White Blood Cell 14.6 10^3/uL (4.4-10.8)
[2022-12-02 08:49] LABS: Basophils % (manual) 0 (0.0-2.0); Blast Cells 0; Metamyelocytes % 0; Myelocytes % 0; Promyelocytes % 0; Reactive Lymphocytes 0
[2022-12-02] MEDS: PANTOPRAZOLE 40 MG/10 ML VIAL INJ IV SCH (09:47)
[2022-12-02] MEDS: ceFAZolin 2 GM in D5W 5% 100 ML IV SCH ×2 (09:47→22:03)
[2022-12-02] MEDS: INSULIN LANTUS (GLARGINE) 1 /0.01ml (100units/ml) SC SCH ×2 (10:11→22:00)
[2022-12-02 11:38] LABS: Band Neutrophils % (manual) 72; Eosinophils % (manual) 3 (0-7); Lymphocytes % (manual) 18 (10.0-50.0); Monocytes % (manual) 7 (0-12)
[2022-12-02] MEDS: PROPOFOL 100 ML IV SCH (12:50)
[2022-12-02] MEDS: MIDAZOLAM DRIP 50 mg/50mL 50 ML IV SCH (12:50)
[2022-12-02] MEDS: fentaNYL Drip 2500mCg/250mlNS 250 ML IV SCH (12:50)
[2022-12-02] MEDS ORDERED: POTASSIUM CHL 20MEQ/100ML 100 ML IV ONE ×2 (13:15→17:00)
[2022-12-02] MEDS: NOREPINEPHRINE BITARTRATE 32 MG in SODIUM CHL 0.9% 218 ML IV SCH (13:45)
[2022-12-02] MEDS: D5W 5% 1,000 ML IV SCH (13:55)
[2022-12-03] VITALS (32 sets, daily range): BP systolic 116–165; BP diastolic 71–101
[2022-12-03] MEDS: FREE WATER GT SCH ×3 (00:35→10:00)
[2022-12-03] MEDS: D5W 5% 1,000 ML IV SCH ×2 (02:25→15:55)
[2022-12-03 04:32] LABS: Basophils # (auto) 0 10 ^3/uL (0-0.2); Basophils % (auto) 0.2 % (0.0-2.0); Eosinophils # (auto) 0.2 10 ^3/uL (0-0.8); Eosinophils % (auto) 2.1 % (0.0-7.0); Hematocrit 39.9 % (41.0-53.0); Hemoglobin 13.3 g/dL (13.5-17.5); Lymphocytes # (auto) 2.3 10 ^3/uL (0.4-5.4); Lymphocytes % (auto) 20.6 % (10.0-50.0); Mean Corpuscular Hemoglobin 29.3 pg (28.0-32.0); Mean Corpuscular Hgb Conc. 33.2 g/dL (32.0-36.0); Mean Corpuscular Volume 88.2 fL (80.0-100.0); Monocytes # (auto) 0.8 10 ^3/uL (0-1.3); Neutrophils # (auto) 7.8 10 ^3/uL (1.6-8.6); Neutrophils % (auto) 70.1 % (37.0-80.0); Nucleated Red Blood Cells % 0.1 %; Red Blood Cells 4.52 10^6/uL (4.5-5.90); Red Cell Distribution Width 12.9 % (11.8-14.3); White Blood Cell 11.1 10^3/uL (4.4-10.8)
[2022-12-03 04:42] LABS: BUN/Creatinine Ratio 44.4; Calcium 8.9 mg/dL (8.5-10.1)
[2022-12-03] MEDS: ACCU-CHEK COMFORT CURVE STRIP VI SCH ×4 (06:00→18:21)
[2022-12-03] MEDS: InsuLIN REG 1unit/0.01ml Soln (100units/ml) SC SCH ×4 (06:00→18:22)
[2022-12-03] MEDS: ceFAZolin 2 GM in D5W 5% 100 ML IV SCH ×3 (06:00→22:00)
[2022-12-03] MEDS: HEPARIN SODIUM (PORCINE) 5000 UNITS/ML 1ML VIAL SC SCH ×3 (06:33→22:00)
[2022-12-03] MEDS: PANTOPRAZOLE 40 MG/10 ML VIAL INJ IV SCH (10:12)
[2022-12-03] MEDS: INSULIN LANTUS (GLARGINE) 1 /0.01ml (100units/ml) SC SCH ×2 (10:41→22:00)
[2022-12-03] MEDS: POTASSIUM CHL 20MEQ/100ML 100 ML IV SCH ×3 (11:41→17:57)
[2022-12-04] MEDS: ACCU-CHEK COMFORT CURVE STRIP VI SCH ×5 (00:06→22:18)
[2022-12-04] MEDS: InsuLIN REG 1unit/0.01ml Soln (100units/ml) SC SCH ×5 (00:15→22:00)
[2022-12-04 05:00] VITALS: BP 135/83
[2022-12-04] MEDS: D5W 5% 1,000 ML IV SCH ×2 (05:43→18:27)
[2022-12-04] MEDS: HEPARIN SODIUM (PORCINE) 5000 UNITS/ML 1ML VIAL SC SCH ×3 (06:00→22:00)
[2022-12-04 06:33] LABS: Basophils # (auto) 0.1 10 ^3/uL (0-0.2); Basophils % (auto) 0.5 % (0.0-2.0); Eosinophils # (auto) 0.2 10 ^3/uL (0-0.8); Eosinophils % (auto) 2.2 % (0.0-7.0); Hematocrit 39.9 % (41.0-53.0); Hemoglobin 13.9 g/dL (13.5-17.5); Lymphocytes % (auto) 21.3 % (10.0-50.0); Mean Corpuscular Hgb Conc. 34.9 g/dL (32.0-36.0); Mean Corpuscular Volume 85.8 fL (80.0-100.0); Monocytes # (auto) 0.7 10 ^3/uL (0-1.3); Monocytes % (auto) 7.7 % (0.0-12.0); Neutrophils # (auto) 6.5 10 ^3/uL (1.6-8.6); Neutrophils % (auto) 68.3 % (37.0-80.0); Nucleated Red Blood Cells % 0.2 %; Red Blood Cells 4.65 10^6/uL (4.5-5.90); Red Cell Distribution Width 12.8 % (11.8-14.3); White Blood Cell 9.5 10^3/uL (4.4-10.8)
[2022-12-04] MEDS: ceFAZolin 2 GM in D5W 5% 100 ML IV SCH ×3 (06:34→21:55)
[2022-12-04 06:43] LABS: Albumin 2.1 g/dL (3.4-5.0); BUN/Creatinine Ratio 37.5; Calcium 8.9 mg/dL (8.5-10.1); Potassium 3.7 mmol/L (3.5-5.1)
[2022-12-04 06:46] LABS: Bilirubin, Total 0.4 mg/dL (0.2-1.0); Total Protein 6.2 g/dL (6.4-8.2)
[2022-12-04 09:03] VITALS: BP 136/80
[2022-12-04] MEDS: PANTOPRAZOLE 40 MG/10 ML VIAL INJ IV SCH (10:12)
[2022-12-04] MEDS: INSULIN LANTUS (GLARGINE) 1 /0.01ml (100units/ml) SC SCH ×2 (10:19→22:00)
[2022-12-04 12:53] VITALS: BP 132/82
[2022-12-04 17:05] VITALS: BP 132/88
[2022-12-04 22:04] VITALS: BP 138/84
[2022-12-05] VITALS (7 sets, daily range): BP systolic 103–142; BP diastolic 71–95
[2022-12-05] MEDS: D5W 5% 1,000 ML IV SCH ×2 (04:26→21:15)
[2022-12-05] MEDS: InsuLIN REG 1unit/0.01ml Soln (100units/ml) SC SCH ×3 (06:00→18:00)
[2022-12-05] MEDS: ceFAZolin 2 GM in D5W 5% 100 ML IV SCH ×3 (06:04→22:28)
[2022-12-05] MEDS: HEPARIN SODIUM (PORCINE) 5000 UNITS/ML 1ML VIAL SC SCH ×3 (06:05→22:29)
[2022-12-05] MEDS: ACCU-CHEK COMFORT CURVE STRIP VI SCH ×3 (06:06→18:16)
[2022-12-05] MEDS: PANTOPRAZOLE 40 MG/10 ML VIAL INJ IV SCH (08:48)
[2022-12-05] MEDS: INSULIN LANTUS (GLARGINE) 1 /0.01ml (100units/ml) SC SCH ×2 (08:51→22:27)
[2022-12-05] MEDS ORDERED: HALOPERIDOL LACTATE 5 MG/ML INJ VIAL IM ONE (12:00)
[2022-12-05 14:25] LABS: Basophils # (auto) 0.1 10 ^3/uL (0-0.2); Basophils % (auto) 0.8 % (0.0-2.0); Eosinophils # (auto) 0.2 10 ^3/uL (0-0.8); Eosinophils % (auto) 1.8 % (0.0-7.0); Hematocrit 43.6 % (41.0-53.0); Hemoglobin 14.4 g/dL (13.5-17.5); Lymphocytes # (auto) 1.7 10 ^3/uL (0.4-5.4); Lymphocytes % (auto) 18.2 % (10.0-50.0); Mean Corpuscular Hgb Conc. 33.1 g/dL (32.0-36.0); Mean Corpuscular Volume 87.7 fL (80.0-100.0); Monocytes # (auto) 0.9 10 ^3/uL (0-1.3); Monocytes % (auto) 9.6 % (0.0-12.0); Neutrophils # (auto) 6.4 10 ^3/uL (1.6-8.6); Neutrophils % (auto) 69.6 % (37.0-80.0); Nucleated Red Blood Cells % 0.1 %; Red Blood Cells 4.97 10^6/uL (4.5-5.90); Red Cell Distribution Width 12.8 % (11.8-14.3); White Blood Cell 9.2 10^3/uL (4.4-10.8)
[2022-12-05 14:30] LABS: Calcium 9.1 mg/dL (8.5-10.1); Potassium 3.7 mmol/L (3.5-5.1)
[2022-12-05 14:32] LABS: BUN/Creatinine Ratio 29.5
[2022-12-06 05:00] VITALS: BP 133/89
[2022-12-06] MEDS: InsuLIN REG 1unit/0.01ml Soln (100units/ml) SC SCH ×4 (06:00→17:59)
[2022-12-06 06:21] LABS: Basophils # (auto) 0.1 10 ^3/uL (0-0.2); Basophils % (auto) 0.8 % (0.0-2.0); Eosinophils # (auto) 0.1 10 ^3/uL (0-0.8); Eosinophils % (auto) 1.1 % (0.0-7.0); Hematocrit 42.8 % (41.0-53.0); Hemoglobin 14.9 g/dL (13.5-17.5); Lymphocytes # (auto) 2.5 10 ^3/uL (0.4-5.4); Lymphocytes % (auto) 24.2 % (10.0-50.0); Mean Corpuscular Hemoglobin 29.8 pg (28.0-32.0); Mean Corpuscular Hgb Conc. 34.8 g/dL (32.0-36.0); Mean Corpuscular Volume 85.6 fL (80.0-100.0); Neutrophils # (auto) 6.7 10 ^3/uL (1.6-8.6); Neutrophils % (auto) 63.9 % (37.0-80.0); Nucleated Red Blood Cells % 0.2 %; Red Cell Distribution Width 13.1 % (11.8-14.3); White Blood Cell 10.4 10^3/uL (4.4-10.8)
[2022-12-06] MEDS: ACCU-CHEK COMFORT CURVE STRIP VI SCH ×5 (06:46→23:20)
[2022-12-06] MEDS: ceFAZolin 2 GM in D5W 5% 100 ML IV SCH ×3 (06:50→23:20)
[2022-12-06] MEDS: HEPARIN SODIUM (PORCINE) 5000 UNITS/ML 1ML VIAL SC SCH ×3 (06:51→23:23)
[2022-12-06 07:08] LABS: Potassium 3.6 mmol/L (3.5-5.1)
[2022-12-06 07:15] LABS: Albumin 2.4 g/dL (3.4-5.0); BUN/Creatinine Ratio 28.1; Bilirubin, Total 0.5 mg/dL (0.2-1.0); Calcium 9.4 mg/dL (8.5-10.1); Total Protein 7.1 g/dL (6.4-8.2)
[2022-12-06 08:36] VITALS: BP 125/65
[2022-12-06] MEDS: INSULIN LANTUS (GLARGINE) 1 /0.01ml (100units/ml) SC SCH ×2 (10:00→22:00)
[2022-12-06] MEDS: PANTOPRAZOLE 40 MG/10 ML VIAL INJ IV SCH (10:11)
[2022-12-06] MEDS: D5W 5% 1,000 ML IV SCH ×2 (11:01→13:01)
[2022-12-06] MEDS: HALOPERIDOL LACTATE 5 MG/ML INJ VIAL IM PRN (11:08)
[2022-12-06 12:49] VITALS: BP 143/93
[2022-12-06] MEDS: Glucerna Carbsteady SHAKE Vanilla 8oz PO SCH ×2 (14:13→18:00)
[2022-12-06] MEDS ORDERED: LORazepam 2MG/ML-1ML VIAL IV PRN (16:45)
[2022-12-06 16:56] VITALS: BP 144/84
[2022-12-06 22:00] VITALS: BP 122/84
[2022-12-07] MEDS: InsuLIN REG 1unit/0.01ml Soln (100units/ml) SC SCH ×4 (01:06→16:26)
[2022-12-07 05:00] VITALS: BP 134/82
[2022-12-07] MEDS: ACCU-CHEK COMFORT CURVE STRIP VI SCH ×3 (06:36→16:27)
[2022-12-07] MEDS: ceFAZolin 2 GM in D5W 5% 100 ML IV SCH ×3 (06:45→22:00)
[2022-12-07] MEDS: HEPARIN SODIUM (PORCINE) 5000 UNITS/ML 1ML VIAL SC SCH ×2 (06:46→16:25)
[2022-12-07] MEDS: PANTOPRAZOLE 40 MG/10 ML VIAL INJ IV SCH (09:43)
[2022-12-07] MEDS: INSULIN LANTUS (GLARGINE) 1 /0.01ml (100units/ml) SC SCH ×2 (09:43→22:00)
[2022-12-07] MEDS: Glucerna Carbsteady SHAKE Vanilla 8oz PO SCH ×3 (09:44→16:26)
[2022-12-07] MEDS ORDERED: MUPIROCIN 2% OINT 15gm or 22gm TOP ONE (11:30)
[2022-12-07] MEDS: MUPIROCIN 2% OINT 15gm or 22gm TOP SCH (12:33)
[2022-12-07] MEDS: D5W 5% 1,000 ML IV SCH (14:31)
[2022-12-07 15:49] LABS: BUN/Creatinine Ratio 23.1; Calcium 8.7 mg/dL (8.5-10.1)
[2022-12-07] MEDS ORDERED: ceFAZolin 1GM/50ML 100 ML IV ONE (20:04)
[2022-12-07 21:31] VITALS: BP 119/72
[2022-12-07] MEDS: HALOPERIDOL LACTATE 5 MG/ML INJ VIAL IM PRN (21:55)
[2022-12-08] MEDS: ACCU-CHEK COMFORT CURVE STRIP VI SCH ×5 (00:34→23:25)
[2022-12-08] MEDS: HEPARIN SODIUM (PORCINE) 5000 UNITS/ML 1ML VIAL SC SCH ×4 (00:47→22:00)
[2022-12-08] MEDS: MUPIROCIN 2% OINT 15gm or 22gm TOP SCH ×3 (00:48→22:20)
[2022-12-08] MEDS: InsuLIN REG 1unit/0.01ml Soln (100units/ml) SC SCH ×5 (00:48→23:25)
[2022-12-08 04:49] VITALS: BP 120/70
[2022-12-08] MEDS: D5W 5% 1,000 ML IV SCH ×2 (04:59→17:11)
[2022-12-08] MEDS: ceFAZolin 2 GM in D5W 5% 100 ML IV SCH ×3 (05:24→22:00)
[2022-12-08 07:14] LABS: Potassium 3.8 mmol/L (3.5-5.1)
[2022-12-08 07:27] LABS: BUN/Creatinine Ratio 23.3; Calcium 8.5 mg/dL (8.5-10.1)
[2022-12-08] MEDS: Glucerna Carbsteady SHAKE Vanilla 8oz PO SCH ×3 (08:49→17:12)
[2022-12-08] MEDS: PANTOPRAZOLE 40 MG/10 ML VIAL INJ IV SCH (08:49)
[2022-12-08] MEDS: INSULIN LANTUS (GLARGINE) 1 /0.01ml (100units/ml) SC SCH ×2 (08:50→22:00)
[2022-12-08 08:53] VITALS: BP 126/74
[2022-12-08 13:00] VITALS: BP 130/80
[2022-12-08 17:00] VITALS: BP 128/78
[2022-12-08 20:56] VITALS: BP 116/68
[2022-12-08] MEDS: HALOPERIDOL LACTATE 5 MG/ML INJ VIAL IM PRN (22:20)
[2022-12-09 05:00] VITALS: BP 108/76
[2022-12-09] MEDS: D5W 5% 1,000 ML IV SCH (05:05)
[2022-12-09] MEDS: ACCU-CHEK COMFORT CURVE STRIP VI SCH ×4 (05:15→22:58)
[2022-12-09] MEDS: InsuLIN REG 1unit/0.01ml Soln (100units/ml) SC SCH ×4 (05:15→22:59)
[2022-12-09] MEDS: HEPARIN SODIUM (PORCINE) 5000 UNITS/ML 1ML VIAL SC SCH ×3 (05:16→22:57)
[2022-12-09] MEDS: ceFAZolin 2 GM in D5W 5% 100 ML IV SCH (05:55)
[2022-12-09] MEDS: Glucerna Carbsteady SHAKE Vanilla 8oz PO SCH ×3 (08:23→17:44)
[2022-12-09 09:00] VITALS: BP 119/68
[2022-12-09] MEDS: PANTOPRAZOLE 40 MG/10 ML VIAL INJ IV SCH (09:31)
[2022-12-09] MEDS: MUPIROCIN 2% OINT 15gm or 22gm TOP SCH ×2 (09:31→22:59)
[2022-12-09] MEDS: INSULIN LANTUS (GLARGINE) 1 /0.01ml (100units/ml) SC SCH ×2 (09:37→22:57)
[2022-12-09] MEDS: HALOPERIDOL LACTATE 5 MG/ML INJ VIAL IM PRN ×2 (11:25→20:21)
[2022-12-09 12:36] VITALS: BP 128/74
[2022-12-09 17:00] VITALS: BP 129/76
[2022-12-09] MEDS: QUEtiapine FUMARATE 25 MG TAB PO SCH (22:50)
[2022-12-10 05:00] VITALS: BP 129/78
[2022-12-10] MEDS: ACCU-CHEK COMFORT CURVE STRIP VI SCH ×4 (06:40→22:25)
[2022-12-10] MEDS: InsuLIN REG 1unit/0.01ml Soln (100units/ml) SC SCH ×4 (06:43→22:25)
[2022-12-10] MEDS: HEPARIN SODIUM (PORCINE) 5000 UNITS/ML 1ML VIAL SC SCH ×3 (06:44→22:26)
[2022-12-10 08:32] LABS: Basophils # (auto) 0.1 10 ^3/uL (0-0.2); Basophils % (auto) 0.5 % (0.0-2.0); Eosinophils # (auto) 0.1 10 ^3/uL (0-0.8); Eosinophils % (auto) 0.9 % (0.0-7.0); Hematocrit 37.1 % (41.0-53.0); Hemoglobin 12.5 g/dL (13.5-17.5); Lymphocytes # (auto) 1.9 10 ^3/uL (0.4-5.4); Lymphocytes % (auto) 17.7 % (10.0-50.0); Mean Corpuscular Hgb Conc. 33.8 g/dL (32.0-36.0); Monocytes # (auto) 0.7 10 ^3/uL (0-1.3); Monocytes % (auto) 6.8 % (0.0-12.0); Neutrophils # (auto) 7.9 10 ^3/uL (1.6-8.6); Neutrophils % (auto) 74.1 % (37.0-80.0); Nucleated Red Blood Cells % 0.2 %; Red Blood Cells 4.32 10^6/uL (4.5-5.90); Red Cell Distribution Width 12.5 % (11.8-14.3); White Blood Cell 10.6 10^3/uL (4.4-10.8)
[2022-12-10 09:48] LABS: BUN/Creatinine Ratio 17.5; Calcium 8.2 mg/dL (8.5-10.1); Potassium 3.9 mmol/L (3.5-5.1)
[2022-12-10] MEDS: Glucerna Carbsteady SHAKE Vanilla 8oz PO SCH ×3 (10:10→18:10)
[2022-12-10] MEDS: MUPIROCIN 2% OINT 15gm or 22gm TOP SCH ×2 (10:11→22:00)
[2022-12-10] MEDS: PANTOPRAZOLE 40 MG/10 ML VIAL INJ IV SCH (12:25)
[2022-12-10] MEDS: QUEtiapine FUMARATE 25 MG TAB PO SCH ×2 (12:25→22:25)
[2022-12-10 22:05] VITALS: BP 120/70
[2022-12-11 04:35] VITALS: BP 117/76
[2022-12-11] MEDS: ACCU-CHEK COMFORT CURVE STRIP VI SCH ×4 (05:53→23:54)
[2022-12-11] MEDS: InsuLIN REG 1unit/0.01ml Soln (100units/ml) SC SCH ×4 (06:00→23:55)
[2022-12-11] MEDS: HEPARIN SODIUM (PORCINE) 5000 UNITS/ML 1ML VIAL SC SCH ×3 (06:10→21:05)
[2022-12-11 08:25] VITALS: BP 144/74
[2022-12-11] MEDS: QUEtiapine FUMARATE 25 MG TAB PO SCH ×2 (08:49→21:05)
[2022-12-11] MEDS: PANTOPRAZOLE 40 MG/10 ML VIAL INJ IV SCH (08:49)
[2022-12-11] MEDS: MUPIROCIN 2% OINT 15gm or 22gm TOP SCH ×2 (08:49→21:06)
[2022-12-11] MEDS: Glucerna Carbsteady SHAKE Vanilla 8oz PO SCH ×3 (08:50→17:27)
[2022-12-11 13:30] VITALS: BP 116/64
[2022-12-11 21:43] VITALS: BP 118/55
[2022-12-11] MEDS: HALOPERIDOL LACTATE 5 MG/ML INJ VIAL IM PRN (23:49)
[2022-12-12 05:00] VITALS: BP 124/75
[2022-12-12] MEDS: ACCU-CHEK COMFORT CURVE STRIP VI SCH ×3 (06:27→18:13)
[2022-12-12] MEDS: HEPARIN SODIUM (PORCINE) 5000 UNITS/ML 1ML VIAL SC SCH ×3 (06:28→21:11)
[2022-12-12] MEDS: InsuLIN REG 1unit/0.01ml Soln (100units/ml) SC SCH ×3 (06:32→18:13)
[2022-12-12 09:00] VITALS: BP 130/68
[2022-12-12] MEDS: QUEtiapine FUMARATE 25 MG TAB PO SCH ×2 (09:20→21:09)
[2022-12-12] MEDS: PANTOPRAZOLE 40 MG/10 ML VIAL INJ IV SCH (09:20)
[2022-12-12] MEDS: MUPIROCIN 2% OINT 15gm or 22gm TOP SCH ×2 (09:20→21:10)
[2022-12-12] MEDS: HALOPERIDOL LACTATE 5 MG/ML INJ VIAL IM PRN ×2 (09:20→17:52)
[2022-12-12] MEDS: Glucerna Carbsteady SHAKE Vanilla 8oz PO SCH ×3 (09:21→18:12)
[2022-12-12] MEDS ORDERED: ASPirin 81 mg TAB PO ONE (11:45)
[2022-12-12 13:00] VITALS: BP 126/83
[2022-12-12] MEDS: ATORVASTATIN 20 MG TAB PO SCH (21:09)
[2022-12-13] MEDS: MUPIROCIN 2% OINT 15gm or 22gm TOP SCH ×2 (00:26→10:00)
[2022-12-13] MEDS: HEPARIN SODIUM (PORCINE) 5000 UNITS/ML 1ML VIAL SC SCH ×3 (00:26→14:00)
[2022-12-13] MEDS: QUEtiapine FUMARATE 25 MG TAB PO SCH ×2 (00:44→10:53)
[2022-12-13] MEDS: ACCU-CHEK COMFORT CURVE STRIP VI SCH ×4 (00:44→18:00)
[2022-12-13] MEDS: InsuLIN REG 1unit/0.01ml Soln (100units/ml) SC SCH ×4 (00:49→18:00)
[2022-12-13 06:00] VITALS: BP 148/97
[2022-12-13] MEDS: Glucerna Carbsteady SHAKE Vanilla 8oz PO SCH ×3 (08:02→18:18)
[2022-12-13] MEDS: PANTOPRAZOLE 40 MG/10 ML VIAL INJ IV SCH (10:52)
[2022-12-13] MEDS: ASPirin 81 mg TAB PO SCH (10:53)
[2022-12-13 13:00] VITALS: BP 139/80
[2022-12-13] MEDS: HALOPERIDOL LACTATE 5 MG/ML INJ VIAL IM PRN (15:37)
[2022-12-13] MEDS: ATORVASTATIN 20 MG TAB PO SCH (22:00)
[2022-12-14] MEDS: INSULIN LANTUS (GLARGINE) 1 /0.01ml (100units/ml) SC SCH ×2 (00:25→21:29)
[2022-12-14] MEDS: ACCU-CHEK COMFORT CURVE STRIP VI SCH ×4 (00:26→17:59)
[2022-12-14] MEDS: InsuLIN REG 1unit/0.01ml Soln (100units/ml) SC SCH ×4 (00:26→18:01)
[2022-12-14] MEDS: QUEtiapine FUMARATE 25 MG TAB PO SCH ×3 (00:59→21:22)
[2022-12-14] MEDS: HEPARIN SODIUM (PORCINE) 5000 UNITS/ML 1ML VIAL SC SCH ×3 (06:00→21:21)
[2022-12-14] MEDS: Glucerna Carbsteady SHAKE Vanilla 8oz PO SCH ×3 (08:00→18:03)
[2022-12-14 08:36] VITALS: BP 112/80
[2022-12-14] MEDS: ASPirin 81 mg TAB PO SCH (10:02)
[2022-12-14] MEDS: PANTOPRAZOLE 40 MG TAB PO SCH (10:02)
[2022-12-14] MEDS: MUPIROCIN 2% OINT 15gm or 22gm TOP SCH ×2 (10:03→21:23)
[2022-12-14 13:00] VITALS: BP 119/75
[2022-12-14 16:40] VITALS: BP 107/79
[2022-12-14] MEDS: ATORVASTATIN 20 MG TAB PO SCH (21:23)
[2022-12-14 22:00] VITALS: BP 113/64
[2022-12-15] MEDS: ACCU-CHEK COMFORT CURVE STRIP VI SCH ×3 (00:18→12:00)
[2022-12-15] MEDS: InsuLIN REG 1unit/0.01ml Soln (100units/ml) SC SCH ×3 (00:19→12:00)
[2022-12-15 05:00] VITALS: BP 111/73
[2022-12-15] MEDS: HEPARIN SODIUM (PORCINE) 5000 UNITS/ML 1ML VIAL SC SCH ×2 (05:36→14:00)
[2022-12-15] MEDS: Glucerna Carbsteady SHAKE Vanilla 8oz PO SCH ×2 (08:00→12:00)
[2022-12-15 09:07] VITALS: BP 124/81
[2022-12-15] MEDS: PANTOPRAZOLE 40 MG TAB PO SCH (09:57)
[2022-12-15] MEDS: QUEtiapine FUMARATE 25 MG TAB PO SCH (09:57)
[2022-12-15] MEDS: ASPirin 81 mg TAB PO SCH (09:57)
[2022-12-15] MEDS: MUPIROCIN 2% OINT 15gm or 22gm TOP SCH (10:01)
[2022-12-15] MEDS: HALOPERIDOL LACTATE 5 MG/ML INJ VIAL IM PRN (12:15)
== END 2022-12-15 18:16 | DRG 870 ==
LOC: EDBD 12:32 → ER 12:32 → TELE 17:05 → ICU WEST 18:47 → TELE-EAST 12-03 17:00 → TELE-WESTW 12-03 21:32 → WEST WING 12-04 12:22
PROVIDERS: ADMIT Nurse Practitioner Family; ATTEND Internal Medicine
PROC: 5A1955Z Respiratory Ventilation, Greater than 96 Consecutive Hours (ICD-10-PCS; principal; 2022-11-21)
PROC: 0BH17EZ Insertion of Endotracheal Airway into Trachea, Via Natural or Artificial Opening (ICD-10-PCS; 2022-11-21)
PROC: 06HM33Z Insertion of Infusion Device into Right Femoral Vein, Percutaneous Approach (ICD-10-PCS; 2022-11-21)
PROC: 05H933Z Insertion of Infusion Device into Right Brachial Vein, Percutaneous Approach (ICD-10-PCS; 2022-11-28)
PROC: B54MZZA Ultrasonography of Right Upper Extremity Veins, Guidance (ICD-10-PCS; 2022-11-28)
DX: A40.1 Sepsis due to streptococcus, group B (principal); E11.11 Type 2 diabetes mellitus with ketoacidosis with coma; E11.01 Type 2 diabetes mellitus with hyperosmolarity with coma; J96.01 Acute respiratory failure with hypoxia; R65.21 Severe sepsis with septic shock; N17.0 Acute kidney failure with tubular necrosis; J15.3 Pneumonia due to streptococcus, group B; K72.00 Acute and subacute hepatic failure without coma; G92.8 Other toxic encephalopathy; I63.9 Cerebral infarction, unspecified; J81.0 Acute pulmonary edema; E87.1 Hypo-osmolality and hyponatremia; E11.52 Type 2 diabetes mellitus with diabetic peripheral angiopathy with gangrene; G93.1 Anoxic brain damage, not elsewhere classified; E87.0 Hyperosmolality and hypernatremia; E66.01 Morbid (severe) obesity due to excess calories; E86.0 Dehydration; E87.5 Hyperkalemia; N18.9 Chronic kidney disease, unspecified; E87.8 Other disorders of electrolyte and fluid balance, not elsewhere classified; E11.22 Type 2 diabetes mellitus with diabetic chronic kidney disease; E78.5 Hyperlipidemia, unspecified; E55.9 Vitamin D deficiency, unspecified; N20.0 Calculus of kidney; E87.6 Hypokalemia; F17.200 Nicotine dependence, unspecified, uncomplicated; H91.90 Unspecified hearing loss, unspecified ear; Z20.822 Contact with and (suspected) exposure to COVID-19; Z79.899 Other long term (current) drug therapy
CPT/HCPCS: 36415; 36600; 70450; 70486; 70551; 71045; 71250; 72125; 74176; 76775; 80048; 80053; 80061; 80202; 80307; 80320; 81001; 82010; 82306; 82570; 82805; 82962; 83036; 83605; 83735; 83880; 83935; 83970; 84100; 84132; 84156; 84300; 84443; 84484; 85007; 85025; 85027; 85610; 85730; 87040; 87070; 87081; 87205; 87426; 92610; 93005; 93306; 93886; 94002; 94003; 94640; 96372; 96374; 96375; 97110; 97116; 97163; 97530; 99291; C9113; G0378; J0330; J0690; J0696; J1815; J2001; J2248; J2250; J2704; J3480; J7060